=== PATIENT | female | born 1960 | race Caucasian/White ===

== ENCOUNTER 2019-04-06 20:06 | Emergency (ER) | payer SELFPAY ==
[~2019-04-06] VITALS: Ht 162.6 cm; Wt 83.9 kg
[2019-04-06 20:30] VITALS: BP 115/60
[2019-04-06] MEDS: IBUPROFEN 800 MG TAB PO ONE (21:38)
[2019-04-06] MEDS: cefTRIAXone 1,000 MG in LIDOCAINE MPF 1% - 5 mL VIAL 2.1 ML IM ONE (21:59)
[2019-04-06 22:12] VITALS: BP 119/71
== END 2019-04-06 22:13 | disposition home or self-care (01) ==
LOC: MED 20:06
DX: N39.0 Urinary tract infection, site not specified (principal); Z88.0 Allergy status to penicillin
CPT/HCPCS: 81002; 81025; 96372; 99283; J0696; J2001